=== PATIENT | female | born 1975 | race Caucasian/White ===

== ENCOUNTER 2022-09-24 10:51 | Emergency (ER) | payer OTHER ==
[2022-09-24] MEDS ORDERED: SODIUM CHLORIDE 0.9% 500 ML INFUS.BAG IV ONE (11:08)
[2022-09-24 11:40] LABS: HEMATOCRIT 35.9 % (32.4-45.2); HEMOGLOBIN 12.5 G/dL (10.7-15.3); MCHC 34.8 g/dl (32.0-36.0); MEAN CELL VOLUME 80.6 fl (80-96); MEAN PLT VOLUME 8.3 fl (7.5-11.1); PLATELET COUNT 181.5 10^3/uL (134-434); RBC 4.46 10^6/uL (3.60-5.2); RDW 15.9 % (11.6-15.6); WHITE BLOOD COUNT 4.8 10^3/uL (4.0-10.8)
[2022-09-24 11:42] LABS: BILIRUBIN,TOTAL 0.8 mg/dl (0.2-1); CALCIUM 8.8 mg/dl (8.5-10); CREATININE 0.6 mg/dl (0.55-1.3); MAGNESIUM 1.8 mg/dL (1.8-2.4); PHOSPHOROUS 3.5 mg/dl (2.5-4.9); TOT PROT 6.8 g/dl (6.4-8.2)
[2022-09-24 11:44] VITALS: TEMP 98.4; BMI 27.4
[2022-09-24 11:45] LABS: PLATELET ESTIMATE ADEQUATE
[2022-09-24 11:46] VITALS: BP 111/83
[2022-09-24 14:09] VITALS: PULSE 95; RESP 18
== END 2022-09-24 14:10 | disposition home or self-care (01) ==
LOC: FER 10:51
DX: R00.0 Tachycardia, unspecified (principal)
CPT/HCPCS: 36415; 71045-TC-FY; 80053; 83735; 84100; 84443; 84484; 84703; 85027; 93005; 93010; 99285-25